=== PATIENT | male | born 1990 | race African-American/Black ===

== ENCOUNTER 2023-08-11 04:02 | Emergency (ER) | payer OTHER ==
[~2023-08-11] VITALS: Ht 182.9 cm; Wt 72.6 kg
[2023-08-11] MEDS ORDERED: IV NS 0.9% 1,000 ML BAG IV ONE (05:00)
[2023-08-11] MEDS ORDERED: DICYCLOMINE HCL INJ 20 MG/2 ML AMPUL IM ONE ×2 (05:00→05:10)
[2023-08-11] MEDS ORDERED: ONDANSETRON HCL/PF 4 MG/2 ML VIAL IVP ONE (05:00)
[2023-08-11] MEDS ORDERED: ONDANSETRON HCL/PF 4 MG/2 ML VIAL ONE (05:24)
[2023-08-11 05:34] LABS: BASOPHILS % (AUTO) 0.3 % (0.0-2.0); HEMATOCRIT 44 % (39-51); HEMOGLOBIN 14.8 g/dL (13.5-17.5); LYMPHOCYTES # (AUTO) 0.9 K/uL (0.8-4.8); LYMPHOCYTES % (AUTO) 8.1 % (20.0-44.0); MEAN CORPUSCULAR HEMOGLOBIN 30 PG (26.0-33.0); MEAN CORPUSCULAR HGB CONC 33 g/dl (31.0-36.0); MEAN CORPUSCULAR VOLUME 91 fL (80-96); MONOCYTES # (AUTO) 0.8 K/uL (0.1-1.30); MONOCYTES % (AUTO) 7.2 % (2.0-12.0); NEUTROPHILS # (AUTO) 9.1 K/uL (1.8-8.9); NEUTROPHILS % (AUTO) 84.4 % (43.0-81.0); PLATELET COUNT (AUTO) 299 K/uL (150-450); RED BLOOD CELL COUNT(AUTO) 4.88 MIL/uL (4.5-6.0); RED CELL DISTRIBUTION WIDTH 13.4 % (11.5-15.0); WHITE BLOOD COUNT (AUTO) 10.7 K/uL (4.3-11.0)
[2023-08-11 05:50] LABS: ALBUMIN 5.2 g/dL (3.4-5.0); BILIRUBIN,DIRECT 0.2 mg/dL (0.0-0.2); BILIRUBIN,TOTAL 0.8 mg/dL (0.2-1.0); CALCIUM, SERUM 9.9 mg/dL (8.5-10.1); POTASSIUM 3.9 mmol/L (3.5-5.1); TOTAL PROTEIN, SERUM 8.7 g/dL (6.4-8.2)
[2023-08-11 05:51] LABS: INR 1.09 (0.91-1.10); PARTIAL THROMBOPLASTIN TIME 28.8 SEC (24.3-34.3); PROTHROMBIN TIME 11.5 SECS (9.2-11.1)
[2023-08-11] MEDS ORDERED: DICY10CA37 PO (06:59)
[2023-08-11] MEDS ORDERED: ONDA4TAB5 PO (06:59)
[2023-08-11] MEDS ORDERED: FAMO20TA8 PO (06:59)
[2023-08-11 07:19] VITALS: BP 122/66; TEMP 98; O2SAT 99
== END 2023-08-11 07:20 | disposition home or self-care (01) ==
LOC: ER 04:09
DX: R11.2 Nausea with vomiting, unspecified (principal); R19.7 Diarrhea, unspecified; R10.84 Generalized abdominal pain; Z60.2 Problems related to living alone
CPT/HCPCS: 99285; 74176; 96374; 96361; 85025; 80048; 83690; 80076; 36415; 85730; 96372; J2405; J7030; J0500

== ENCOUNTER 2024-12-31 04:14 | Emergency (ER) | payer OTHER ==
[~2024-12-31] VITALS: Ht 182.9 cm; Wt 81.6 kg
[~2024-12-31 04:14] MED LIST: DICY10CA37 PO; FAMO20TA8 PO; ONDA4TAB5 PO
[2024-12-31] MEDS ORDERED: KETOROLAC TROMETHAMINE INJ 30 MG/ML VIAL ONE (05:06)
[2024-12-31] MEDS ORDERED: ONDANSETRON HCL/PF 4 MG/2 ML VIAL ONE (05:06)
[2024-12-31] MEDS: ONDANSETRON HCL/PF - ER 4 MG/2 ML VIAL IV ONE (05:11)
[2024-12-31] MEDS: IV NS 0.9% 1,000 ML IV ONE (05:11)
[2024-12-31] MEDS: KETOROLAC TROMETHAMINE INJ 30 MG/ML VIAL IV ONE (05:11)
[2024-12-31 05:23] LABS: BASOPHILS % (AUTO) 0.6 % (0.0-2.0); EOSINOPHILS # (AUTO) 0.1 K/uL (0.0-0.7); EOSINOPHILS % (AUTO) 1.5 % (0.0-6.0); HEMATOCRIT 43 % (39-51); HEMOGLOBIN 14.4 g/dL (13.5-17.5); LYMPHOCYTES # (AUTO) 1.4 K/uL (0.8-4.8); LYMPHOCYTES % (AUTO) 19.8 % (20.0-44.0); MEAN CORPUSCULAR HEMOGLOBIN 30 PG (26.0-33.0); MEAN CORPUSCULAR HGB CONC 34 g/dl (31.0-36.0); MEAN CORPUSCULAR VOLUME 90 fL (80-96); MONOCYTES # (AUTO) 0.7 K/uL (0.1-1.30); MONOCYTES % (AUTO) 10.1 % (2.0-12.0); PLATELET COUNT (AUTO) 233 K/uL (150-450); RED BLOOD CELL COUNT(AUTO) 4.81 MIL/uL (4.5-6.0); RED CELL DISTRIBUTION WIDTH 13.7 % (11.5-15.0); WHITE BLOOD COUNT (AUTO) 7.3 K/uL (4.3-11.0)
[2024-12-31 05:34] LABS: CALCIUM, SERUM 9.7 mg/dL (8.5-10.1)
[2024-12-31] MEDS ORDERED: GABA-532 PO (05:37)
[2024-12-31] MEDS ORDERED: ONDA4TAB5 PO (05:37)
[2024-12-31 05:42] LABS: ALBUMIN 4.8 g/dL (3.4-5.0); BILIRUBIN,TOTAL 0.8 mg/dL (0.2-1.0); TOTAL PROTEIN, SERUM 7.7 g/dL (6.4-8.2)
[2024-12-31 06:19] LABS: APPEARANCE,URINE CLEAR (CLEAR); BILIRUBIN,URINE NEGATIVE (NEGATIVE); BLOOD, URINE NEGATIVE Ery/uL (NEGATIVE); COLOR,URINE DARK YELLOW (YELLOW); KETONES,URINE 1+ mg/dL (NEGATIVE); LEUKOCYTE ESTERASE ,URINE NEGATIVE (NEGATIVE); NITRITE, URINE NEGATIVE (NEGATIVE); PH,URINE 5.5 (5.0-8.0); PROTEIN,URINE TRACE mg/dl (NEGATIVE); UGLUCOSE NEGATIVE (NEGATIVE); UROBILINOGEN,URINE 0.2 EU/dL (0.2)
[2024-12-31 06:20] VITALS: BP 130/85; TEMP 98; O2SAT 98
[2024-12-31 06:26] LABS: ADD URINE CULTURE NO; BACTERIA,URINE Rare /HPF (None Seen); MUCUS,URINE Moderate /LPF (None Seen); RBC,URINE 0-2 /HPF (0-2); SQUAMOUS EPITHELIAL CELL,UR None Seen /HPF (None Seen); WBC,URINE 0-2 /HPF (0-3)
[2024-12-31 06:32] LABS: AMPHETAMINE, URINE NEGATIVE (NEGATIVE); BARBITURATE, URINE NEGATIVE (NEGATIVE); BENZODIAZEPINE, URINE NEGATIVE (NEGATIVE); COCCAINE, URINE NEGATIVE (NEGATIVE); OPIATE, URINE NEGATIVE (NEGATIVE); PHENCYCLIDINE SCREEN,URINE NEGATIVE (NEGATIVE)
[2024-12-31 06:39] LABS: CANNABINOID, URINE POSITIVE (NEGATIVE)
== END 2024-12-31 06:22 | disposition home or self-care (01) ==
LOC: ER 04:15
DX: R51.9 Headache, unspecified (principal); R11.2 Nausea with vomiting, unspecified; G35 Multiple sclerosis; Z79.899 Other long term (current) drug therapy; Z60.2 Problems related to living alone
CPT/HCPCS: 99285; 96374; 70450; 96361; 96375; 85025; 36415; 80053; 80307; 81001; J1885; J2405 ×2; J7030